=== PATIENT | male | born 1990 | race African-American/Black ===

== ENCOUNTER 2016-11-19 10:15 | Emergency (ER) | payer OTHER ==
[~2016-11-19] VITALS: Ht 180.3 cm; Wt 75.0 kg
[~2016-11-19 10:15] MED LIST: ACYC400T PO; AZIT600T PO; CEFT500T3 PO; EMTR1TAB5 PO; PREZ600T2 PO
[2016-11-19 10:17] VITALS: BP 115/58; PULSE 94; RESP 16; TEMP 98; O2SAT 95
[2016-11-19] MEDS ORDERED: PROCHCT RECTAL (14:51)
--- NOTE | 2016-11-19 14:58 | PD ---
HPI Chief Complaint: GI Complaint Time Seen by Provider: 12:41 Travel History International Travel<30 days: No Contact w/Intl Traveler<30days: No Traveled to known affect area: No History of Present Illness HPI This patient complains of rectal irritation. Duration 3 days. No bleeding. Denies fever. Symptom severity is mild PFSH Past Medical History Blood Disorders: No Cancer: No Cardiovascular Problems: Yes (BLOOD CLOT IN BLADDER, bladder) Diminished Hearing: No Endocrine: No Genitourinary: No Immune Disorder: Yes (HIV) Psychiatric: No Reproductive: No Respiratory: No Immunizations Current: Yes Tetanus Vaccination: < 5 Years Past Surgical History Genitourinary Surgery: Yes (BLOOD CLOT TO PENIS AND BLADDER ABSCESS) Other Surgery: Yes (hernia repair) Social History Alcohol Use: Yes (socially) Tobacco Use: No Substance Use: No (former drug users. denies current use. 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 Positive bowel sounds. No hepato-splenomegaly, or palpable masses. No guarding. SKIN: Inspection shows no rash or ulcers. Palpation shows no induration or nodules. Rectal: Has an external hemorrhoid as well as some warts in the region Data Data Last Documented VS Vital Signs Date Time Temp Pulse Resp B/P Pulse Ox O2 Delivery O2 Flow Rate FiO2 11/19/16 10:17 98.0 94 16 115/58 95 Room Air MDM Medical Decision Making Medical Screen Exam Complete: Yes Emergency Medical Condition: Yes Medical Record Reviewed: Yes Differential Diagnosis Hemorrhoid, abscess, warts Narrative Course I have reviewed the patient's electronic medical record. Wrote him some Proctofoam to help calm down his external hemorrhoid. To follow-up to have his warts addressed if he would like, not much I can do that now. Diagnosis Primary Impression: External hemorrhoid Additional Impression: Anal warts Additional Instructions: The patient was advised to follow up with their physician and return if they worsen. Med/Other Pt SpecificInfo: Prescription(s) given Scripts Hydrocortisone-Pramoxine Rectal (Proctofoam Hc Rectal)1-1% Foam1 Applic RECTAL Q12HR PRN (ITCHING/INFLAMMATION) #1 CAN Ref 0 Prov:Min Garg MD 11/19/16 Disposition: 01 DISCHARGE HOME Condition: Stable Min Garg MD Nov 19, 2016 14:58
== END 2016-11-19 15:08 | disposition home or self-care (01) ==
LOC: NEPD 10:15
DX: K64.4 Residual hemorrhoidal skin tags (principal); A63.0 Anogenital (venereal) warts; Z21 Asymptomatic human immunodeficiency virus [HIV] infection status; Z86.79 Personal history of other diseases of the circulatory system
CPT/HCPCS: 99283